=== PATIENT | female | born 2000 | race Caucasian/White ===

== ENCOUNTER 2021-04-01 16:22 | Emergency (ER) | payer BC, SELFPAY ==
--- NOTE | ~2021-04-01 | XR_ITS ---
EXAMINATION: XR FOOT, LEFT CLINICAL INFORMATION: Foot pain. COMPARISON: None TECHNIQUE: AP, lateral, and oblique views of the left foot. FINDINGS: The bones and soft tissues are normal. No fracture. Alignment is anatomic. Joint spaces are maintained. XR/XR foot LT min 3V IMPRESSION: Normal left foot.
[2021-04-01 16:31] VITALS: BP 110/60; PULSE 60; O2SAT 98
[2021-04-01 18:01] VITALS: BP 104/45; PULSE 56; RESP 18; TEMP 36.8; O2SAT 100; BMI 22.4
--- NOTE | 2021-04-01 18:41 | ED_ITS ---
HPI - Extremity Injury (Lower) General Chief Complaint: Extremity Injury, Lower Stated Complaint: ankle injury Time Seen by Provider: 04/01/21 18:29 Source: patient Mode of arrival: ambulatory Limitations: no limitations History of Present Illness HPI Narrative: Patient states left foot pain since yesterday after dancing. Patient states pain is near fourth and fifth toe. Patient pain on foot on ambulation. Related Data Previous Rx's Medication Instructions Recorded naproxen 500 mg tablet 500 mg PO BID PRN #20 tab 04/01/21 Allergies Allergy/AdvReac Type Severity Reaction Status Date / Time Cephalosporins Allergy Unknown Verified 04/01/21 18:01 Review of Systems Review of Systems: Yes all other systems are reviewed and are negative Constitutional: Constitutional: Reports as per HPI and Reports no additional constitutional complaints Eyes: Eyes: Reports as per HPI and Reports no additional eye complaints ENT: Reports system reviewed and no additional complaints, except as documented and Reports as per HPI Cardiovascular: Cardiovascular: Reports as per HPI and Reports no additional cardiovascular complaints Respiratory: Respiratory: Reports as per HPI and Reports no additional r espiratory complaints Gastrointestinal: Gastrointestinal: Reports as per HPI and Reports no additional gastrointestinal complaints Genitourinary: Genitourinary: Reports no additional female genitourinary complaints and Reports as per HPI Musculoskeletal: Musculoskeletal: Reports no additional musculoskeletal complaints, Reports as per HPI and Reports arthralgias (left foot pain) Neurologic: Reports system reviewed and no additional complaints, except as documented and Reports as per HPI Psychiatric: Psychiatric: Reports no additional psychiatric complaints and Reports as per HPI [facility] Past Medical History Medical History (Updated 04/01/21 @ 18:56 by ERICA Quan) Patient denies medical problems Social History Social History Advance Directives: No Advance Directives Information Provided: No Physical Exam Vital Signs: Vital Signs: Last Vital Signs Temp 98.3 F 04/01/21 18:01 Pulse 56 04/01/21 18:01 Resp 18 04/01/21 18:01 BP 104/45 L 04/01/21 18:01 Pulse Ox 100 04/01/21 18:01 Body Mass Index 22.4 Const: General: cooperative, healthy appearing, comfortable, no acute distress, well developed, alert and awake Orientation/consciousness: patient oriented x3 HENMT: Head: Yes normal to inspection, Yes No palpable skull fracture present, Yes normocephalic, Yes atraumatic and No abrasion Eyes: General: appearance normal, both eyes and all related structures Neck: Neck: Yes normal visual inspection, Yes full ROM, Yes no lymphadeno leonel, Yes no meningeal signs, Yes trachea midline, Yes supple and No tender Chest: Chest palpation & inspection: normal inspection of the chest and normal palpation of entire chest wall Resp: Effort & Inspection: normal respiratory effort and able to speak in complete sentences Auscultation: clear to auscultation bilaterally Cardio: Jugular venous distension: no JVD Heart sounds: S1 normal heart sound present and S2 normal heart sound present GI: Inspection: Yes normal to inspection Palpation (GI): Soft to palpation, not firm, nontender, no guarding and not rigid : General: No CVA tenderness and Yes no CVA tenderness Back/Spine/Pelvis: Back: no CVA tenderness, No CVA tenderness and No ecchymosis Skin: General skin exam: no rashes or lesions noted and elasticity normal Neuro: General: patient oriented x3, gait normal, no meningeal signs and CN's II-XI intact bilaterally Cranial nerves: Yes CN's II-XII intact bilaterally Extrem: General: Yes normal to inspection and Yes full ROM Ankle/foot/toe images: 1. Tenderness on palpation. Negative for ecchymosis, deformity, redness, hotness, or coolness. Vascular/motor/neuro exam intact. Psych: Appearance: grossly normal, well kempt and not disheveled Course Course Course Narrative: Foot x-ray Reevaluation(s) Reevaluation #1: Foot x-ray negative for any fracture. Patient informed no dancing for next 3 days. Patient informed patient continues to have pain recommend MRI due to possibility that may be a small stress fracture that could be missed due to her being a denser are some tendon injury. Time: 18:53 MDM - Extremity Injury (Lower) MDM Narrative Medical decision making narrative: Foot strain Discharge Plan Discharge Clinical Impression: Foot sprain Patient Disposition: Home, Self-Care Instructions: Foot Sprain (ED) Additional Instructions: Return to ED for worsening pain, swelling, redness, bluish black discoloration, coldness, calf pain, leg swelling, fever, chills, chest pain, shortness of breath, any other concerning symptoms. Recommend MRI if pain does not improve for possibility of tendon/ligament injury or stress fracture. No sports activit y or dancing for least the next 5 days. Prescriptions: New naproxen 500 mg tablet 500 mg PO BID PRN (Reason: pain) Qty: 20 RF: 0 Stand Alone Forms: Work/School Release Interventions: ED Discharge Assessment Last Done: 04/01/21 19:30 Discharge Date/Time: 04/01/21 19:30 Print Language: Andorran
[2021-04-01] MEDS: Ibuprofen 800 MG TABLET PO (19:18)
== END 2021-04-01 19:30 | disposition home or self-care (01) ==
PROVIDERS: Emergency Provider Emergency Medicine Emergency Medical Services
DX: S93.602A Unspecified sprain of left foot, initial encounter (principal); M79.672 Pain in left foot; X50.1XXA Overexertion from prolonged static or awkward postures, initial encounter; Y93.41 Activity, dancing; Y92.9 Unspecified place or not applicable; Y99.9 Unspecified external cause status; Z79.899 Other long term (current) drug therapy
CPT/HCPCS: 73630; 99283